=== PATIENT | female | born 1940 | race Caucasian/White ===

== ENCOUNTER → 2017-02-13 | Outpatient (CLI) | payer MEDICARE ==
[~2017-02-13] MED LIST: ALEVE220 M1 PO; ASPIRINEC PO; CALCIUM 500 + D1 TAB PO; CERTAGEN PO; GLUCOSAMINE CHON; IBUPROFEN PO; LISINOPRIL PO; VITAMIN C PO; [UNRECOGNIZED DRUG - OTHER]
--- NOTE | ~2017-02-13 | CT7 ---
[facility] A Service of [facility] RADIOLOGY TEXT RESULTS PATIENT: GRIS STEVEN LOCATION: [facility] : 36 UNIT #: [id number] AGE: [address]: Fausto Guevara MD SEX: F ORDER DR: [id number] [address] [address] [id number] O MR#: [id number] Acc #: [id number] NAME: GRIS STEVEN : 1940 SEX: F STUDY DATE/TIME: 02/13/2017 9:18 UNIT: [facility] ROOM: STUDY DESCRIPTION: CT Abdomen Wo Cont Attending Physician: Fausto Guevara M.D. Referring Physician: Fausto Guevara M.D. Ordering Physician: Fausto Guevara M.D. Primary Care Physician: Oziel Chester M.D. MEDICAL IMAGING REPORT This report is preliminary unless electronic signature is present. EXAM Abdomen CT without contrast HISTORY Breast cancer on the left. Observation for metastatic disease. Evaluate abdomen for restaging. TECHNIQUE Axial images were obtained without contrast. This CT exam was performed with one or more of the following radiation dose reduction techniques: automatic exposure control, adjustment of mA and/or kV according to patient size, and iterative reconstruction. COMPARISON 05/16/2016 FINDINGS Hepatic steatosis is again noted. It is most prominent in the right hepatic lobe and unchanged from previous exam. The spleen and pancreas are normal in size. No suspicious renal masses are seen. No evidence of stone disease or hydronephrosis. There is no evidence of retroperitoneal adenopathy or ascites and no distended bowel loops are seen. Mid lumbar degenerative disc disease again noted. IMPRESSION Hepatic steatosis. No change from the previous scan. No evidence of metastatic disease. Dictated by... John Lopez M.D. [facility] A Service of [facility] RADIOLOGY TEXT RESULTS PATIENT: GRIS STEVEN LOCATION: [facility] : 36 UNIT #: [id number] AGE: [address]: Fausto Guevara MD SEX: F ORDER DR: THIS IS AN ELECTRONICALLY VERIFIED REPORT John Lopez M.D. at 02/14/2017 5:00 PM Damien TD: 02/14/2017 13:39 JOB #: [id number] MEDICAL IMAGING REPORT Page 1 of 1
--- NOTE | ~2017-02-13 | CT57 ---
[facility] of [facility] RADIOLOGY TEXT RESULTS PATIENT: GRIS STEVEN LOCATION: [facility] : 36 UNIT #: [id number] AGE: [address]: Fausto Guevara MD SEX: F ORDER DR: [id number] [address] [address] [id number] O MR#: [id number] Acc #: [id number] NAME: GRIS STEVEN : 1940 SEX: F STUDY DATE/TIME: 02/13/2017 9:09 UNIT: [facility] ROOM: STUDY DESCRIPTION: CT Chest Wo Cont Attending Physician: Fausto Guevara M.D. Referring Physician: Fausto Guevara M.D. Ordering Physician: Fausto Guevara M.D. Primary Care Physician: Oziel Chester M.D. MEDICAL IMAGING REPORT This report is preliminary unless electronic signature is present. EXAM Chest CT. HISTORY Left breast cancer diagnosed September 2015. Observation for recurrent neoplasm. COMPARISON 05/16/2016. TECHNIQUE Axial images were obtained without contrast and evaluated at lung and mediastinal windows. This CT exam was performed with one or more of the following radiation dose reduction techniques: Automatic exposure control, adjustment of mA and/or kV according to patient size, and iterative reconstruction. FINDINGS Chest images at mediastinal window show postoperative changes of mastectomy on the left. There is no evidence of mediastinal or hilar adenopathy. There is no evidence of pleural or pericardial fluid. Images at lung window show emphysema. No suspicious lung masses or infiltrates are seen. No changes are noted since the previous scan. IMPRESSION No evidence of metastatic disease. No change from the previous scan. Dictated by... John Lopez M.D. THIS IS AN ELECTRONICALLY VERIFIED REPORT [facility] Service of [facility] RADIOLOGY TEXT RESULTS PATIENT: GRIS STEVEN LOCATION: [facility] : 36 UNIT #: [id number] AGE: [address]: Fausto Guevara MD SEX: F ORDER DR: John Lopez M.D. at 02/14/2017 5:00 PM ROBERT/joshua TD: 02/14/2017 13:41 JOB #: [id number] MEDICAL IMAGING REPORT Page 1 of 1
== END | disposition home or self-care (01) ==
LOC: SCT 08:56
DX: C50.412 Malignant neoplasm of upper-outer quadrant of left female breast (principal); C78.00 Secondary malignant neoplasm of unspecified lung; R53.0 Neoplastic (malignant) related fatigue; N18.9 Chronic kidney disease, unspecified; D63.1 Anemia in chronic kidney disease; K76.0 Fatty (change of) liver, not elsewhere classified
CPT/HCPCS: 71250; 74150